=== PATIENT | male | born 1960 | race Caucasian/White ===

== ENCOUNTER 2025-06-30 14:37 | Outpatient (CLI) | payer MEDICARE | END 2025-06-30 14:38 | disposition home or self-care (01) | LOC: CSHWCC 14:37 | PROVIDERS: ATTEND Nurse Practitioner Family | DX: T81.31XD Disruption of external operation (surgical) wound, not elsewhere classified, subsequent encounter (principal) | CPT/HCPCS: 97607; 99214; G0463 ==

== ENCOUNTER 2025-07-07 12:54 | Outpatient (CLI) | payer OTHER, MEDICARE | END 2025-07-07 12:55 | disposition home or self-care (01) | LOC: CSHWCC 12:54 | PROVIDERS: ATTEND Nurse Practitioner Family | DX: T81.31XD Disruption of external operation (surgical) wound, not elsewhere classified, subsequent encounter (principal) ==

== ENCOUNTER 2025-07-13 10:47 | Outpatient (CLI) | payer MEDICARE | END 2025-07-13 10:48 | disposition home or self-care (01) | LOC: CSHWCC 10:47 | PROVIDERS: ATTEND Nurse Practitioner Family | DX: T81.31XD Disruption of external operation (surgical) wound, not elsewhere classified, subsequent encounter (principal); L97.322 Non-pressure chronic ulcer of left ankle with fat layer exposed | CPT/HCPCS: 11042; 99213; G0463 ==

== ENCOUNTER 2025-07-21 09:49 | Outpatient (CLI) | payer MEDICARE | END 2025-07-21 09:50 | disposition home or self-care (01) | LOC: CSHWCC 09:49 | PROVIDERS: ATTEND Nurse Practitioner Family | DX: T81.31XD Disruption of external operation (surgical) wound, not elsewhere classified, subsequent encounter (principal); L97.322 Non-pressure chronic ulcer of left ankle with fat layer exposed | CPT/HCPCS: 11042 ==

== ENCOUNTER 2025-07-28 12:51 | Outpatient (CLI) | payer MEDICARE | END 2025-07-28 12:52 | disposition home or self-care (01) | LOC: CSHWCC 12:51 | PROVIDERS: ATTEND Nurse Practitioner Family | DX: T81.31XD Disruption of external operation (surgical) wound, not elsewhere classified, subsequent encounter (principal); L97.322 Non-pressure chronic ulcer of left ankle with fat layer exposed | CPT/HCPCS: 97597 ==

== ENCOUNTER 2025-08-04 10:00 | Outpatient (CLI) | payer MEDICARE | END 2025-08-04 10:01 | disposition home or self-care (01) | LOC: CSHWCC 10:00 | PROVIDERS: ATTEND Nurse Practitioner Family | DX: T81.31XD Disruption of external operation (surgical) wound, not elsewhere classified, subsequent encounter (principal); L97.322 Non-pressure chronic ulcer of left ankle with fat layer exposed | CPT/HCPCS: 97597 ==

== ENCOUNTER 2025-08-18 09:00 | Outpatient (CLI) | payer MEDICARE | END 2025-08-18 09:01 | disposition home or self-care (01) | LOC: CSHWCC 09:00 | PROVIDERS: ATTEND Nurse Practitioner Family | DX: T81.31XD Disruption of external operation (surgical) wound, not elsewhere classified, subsequent encounter (principal); L97.322 Non-pressure chronic ulcer of left ankle with fat layer exposed | CPT/HCPCS: 99212; G0463 ==